=== PATIENT | female | born 1940 | race Caucasian/White ===

== ENCOUNTER → 2020-03-19 14:02 | Outpatient (CLI) | payer MEDICARE, SELFPAY ==
--- NOTE | 2020-03-19 | DI.MRI.S_ITS ---
PROCEDURE: MR SHOULDER RT WO CON INDICATIONS: Pain in right shoulder TECHNIQUE: Noncontrast oblique coronal T2 fast spin echo with fat saturation, oblique sagittal T1 spin echo and T2 fast spin echo with fat saturation, axial T1 spin echo and T2 fast spin echo with fat saturation through the shoulder. COMPARISON: None. FINDINGS: Image quality: Degraded by motion artifact.. Rotator cuff: Full-thickness tear of the supraspinatus and infraspinatus tendons measuring approximately 2.1 cm in the AP dimension as seen on sagittal pulse sequences. There is also interstitial tearing tendinopathy involving the teres minor tendon. Subscapularis tendinopathy and thickening is present. Atrophy of the supraspinatus and infraspinatus muscles is present Bones and bursae: No bone marrow contusions or fractures. Mild acromioclavicular joint degeneration. There is also moderate glenohumeral joint degeneration. Acromion demonstrates conventional anatomy, without an os acromiale. Small glenohumeral joint effusion. Capsule and soft tissues: Labrum: Ill-defined superior labral tear, which is poorly evaluated given motion artifact. There is also posterior labral tear with macerated appearance and chronic degenerative changes in the adjacent glenoid. There is blunting of the inferior labrum Long head of the biceps tendon not well seen and may be ruptured although limited evaluation given severe motion artifact in this area.. The rotator interval appears normal, without fibrosis. Coracohumeral ligament intact. IMPRESSION: Full-thickness tear of the supraspinatus and infraspinatus tendons, with atrophy of the respective muscles. Degenerative joint disease. Ill-defined superior and posterior labral tear, chronic. Long head biceps tendon not well visualized and could be ruptured although this is not well assessed given motion artifact. Therefore please correlate to clinical exam findings. Small glenohumeral joint effusion. Dictated by: Adam Jordan M.D. on 03/19/2020 at 16:06 Approved by: Adam Jordan M.D. on 03/19/2020 at 16:13
== END ==
PROVIDERS: PCP Internal Medicine; Referring Provider Orthopaedic Surgery; Visit Provider Orthopaedic Surgery
DX: M25.511 Pain in right shoulder (principal); M75.121 Complete rotator cuff tear or rupture of right shoulder, not specified as traumatic; M19.011 Primary osteoarthritis, right shoulder; S43.491A Other sprain of right shoulder joint, initial encounter; M25.411 Effusion, right shoulder
CPT/HCPCS: 73221